=== PATIENT | female | born 1955 | race Caucasian/White ===

== ENCOUNTER 2019-06-22 05:14 | Day surgery (SDC) | payer OTHER ==
[~2019-06-22] VITALS: Ht 162.6 cm; Wt 65.8 kg
[2019-06-22] MEDS ORDERED: HYDR-3237 PO (06:02)
[2019-06-22] MEDS ORDERED: ATOR10TA9 PO (06:02)
[2019-06-22] MEDS ORDERED: FENTANYL PF 250 MCG/5ML ONE (06:28)
[2019-06-22] MEDS ORDERED: MIDAZOLAM 1 MG/ML, 2ML ONE (06:28)
[2019-06-22] MEDS ORDERED: LACTATED RINGERS 1,000 ML IV SCH (06:29)
[2019-06-22] MEDS ORDERED: ACETAMINOPHEN 500 MG TABLET PO ONE (06:30)
[2019-06-22] MEDS ORDERED: NAPR250T6 PO (06:30)
[2019-06-22] MEDS ORDERED: GABAPENTIN 300 MG CAPSULE PO ONE (06:30)
[2019-06-22] MEDS ORDERED: SCOPOLAMINE PATCH, 1.5MG PATCH.TD72 TD ONE (06:30)
[2019-06-22] MEDS ORDERED: KETOROLAC 30 MG/1 ML ONE (06:31)
[2019-06-22] MEDS ORDERED: DEXAMETHASONE 4 MG/ML, 1ML ONE (06:31)
[2019-06-22] MEDS ORDERED: CEFAZOLIN 1,000 MG ONE (06:31)
[2019-06-22] MEDS ORDERED: PROPOFOL 10 MG/ML, 20ML ONE (06:31)
[2019-06-22] MEDS ORDERED: ONDANSETRON 2MG/ML, 2ML ONE (06:31)
[2019-06-22] MEDS ORDERED: PHENYLEPHRINE 10 MG/ML ONE (06:32)
[2019-06-22] MEDS ORDERED: LIDOCAINE 1%-EPI 1:100K, 20ML ONE (06:34)
[2019-06-22] MEDS ORDERED: BUPIVACAINE/PF 0.5% ONE (06:34)
[2019-06-22] MEDS ORDERED: EPINEPHRINE 1 MG/ML, 1ML ONE (06:34)
[2019-06-22 06:53] VITALS: BP 158/94
[2019-06-22] MEDS ORDERED: MORPHINE SULFATE 4 MG/ML, 1ML IVPush PRN (07:00)
[2019-06-22] MEDS ORDERED: HALOPERIDOL 5 MG/ML IV PRN (07:00)
[2019-06-22] MEDS ORDERED: OXYcodone 5 MG/5 ML ORAL.SOL UDC PO PRN (07:00)
[2019-06-22] MEDS ORDERED: FENTANYL PF 100 MCG/2ML IV PRN (07:00)
[2019-06-22] MEDS ORDERED: PROMETHAZINE 25 MG/ML, 1ML IV PRN (07:00)
[2019-06-22] MEDS ORDERED: HYDROmorphone 2 MG/ML, 1ML IVPush PRN (07:00)
[2019-06-22] MEDS ORDERED: hydrALAzine 20 MG/ML, 1ML IV PRN (07:00)
[2019-06-22] MEDS ORDERED: LABETALOL 5MG/ML, 20ML IV PRN (07:00)
[2019-06-22] MEDS ORDERED: DICL75TA3 PO (07:03)
[2019-06-22] MEDS ORDERED: FENTANYL PF 100 MCG/2ML ONE (07:55)
[2019-06-22] MEDS ORDERED: OXYcodone 5 MG/5 ML ORAL.SOL UDC ONE (07:55)
[2019-06-22] MEDS ORDERED: MEPERIDINE/PF 25MG/ML,1ML ONE (07:58)
[2019-06-22] MEDS: MEPERIDINE/PF 25MG/ML,1ML IVPush PRN ×2 (07:59→08:10)
== END 2019-06-22 09:40 | disposition home or self-care (01) ==
LOC: OUT 05:14
PROVIDERS: ATTEND Orthopaedic Surgery
DX: S83.232A Complex tear of medial meniscus, current injury, left knee, initial encounter (principal); M22.42 Chondromalacia patellae, left knee; M17.12 Unilateral primary osteoarthritis, left knee; E78.5 Hyperlipidemia, unspecified; I10 Essential (primary) hypertension; Z79.1 Long term (current) use of non-steroidal anti-inflammatories (NSAID); Z79.891 Long term (current) use of opiate analgesic; Z79.899 Other long term (current) drug therapy; X50.9XXA Other and unspecified overexertion or strenuous movements or postures, initial encounter; Y93.89 Activity, other specified; Y99.0 Civilian activity done for income or pay
CPT/HCPCS: 29881; 93005; J0171; J0690; J1100; J1885; J2175; J2250; J2370; J2405; J2704; J3010; J3490; J7120